=== PATIENT | male | born 1990 | race Caucasian/White ===

== ENCOUNTER 2023-03-06 09:29 | Emergency (ER) | payer OTHER, SELFPAY ==
[2023-03-06 09:30] VITALS: BP 148/92; PULSE 115; RESP 16; TEMP 36.5; O2SAT 98; BMI 27.8
--- NOTE | 2023-03-06 10:02 | CT_ITS ---
STUDY: CT ABDOMEN AND PELVIS WITH CONTRAST - URINARY TRACT REASON FOR EXAM: Male, 32 years old. LLQ Pain and bleeding RADIATION DOSAGE (If Supplied By Facility): CTDIvol = ( 13.13 ) mGy, DLP = ( 685.59 ) mGycm TECHNIQUE: IV 100mL Isovue-300 was administered. Transaxial images were obtained from the dome of the diaphragm to the symphysis pubis subsequent to intravenous contrast demonstration. Multiplanar coronal and sagittal images were reformatted. Individualized Dose Optimization Techniques Were Used For This CT. COMPARISON: No relevant prior comparison study available FINDINGS: The visualized lung bases are unremarkable. The visualized portions of the heart are within normal limits. There is a too small to characterize low-attenuation focus within the right hepatic lobe which may reflect a hemangioma or cyst. There is hepatomegaly. Normal gallbladder and extrahepatic biliary system. There is mild splenomegaly. Normal pancreas. Normal bilateral adrenal glands. Normal visualized stomach. Normal small intestine. There is circumferential wall thickening of the colon and rectum. There are a few diverticula arising from the sigmoid colon. The appendix is visualized and appears normal. Normal abdominal aorta. No retroperitoneal adenopathy. Normal right kidney. Normal left kidney. Normal urinary bladder. Normal abdominal wall. Normal osseous structures. CT/Abdomen/Pelvis W IV Cont ONLY IMPRESSION: Acute proctocolitis. Hepatosplenomegaly. Electronically Signed: Ashley Gutierrez MD at 10:56 EST ,
--- NOTE | 2023-03-06 10:03 | ED.VIS.GI ---
HPI HPI - GI History of Present Illness Chief Complaint: GI Bleed Informant: patient Narrative Narrative: Patient presents with some diarrhea and blood in his stool. Patient states he started with diarrhea on Saturday. On Saturday he had a little bit of pinkish tinge. But it seemed to clear up. He continued with some waxing and waning diarrhea. 2 weeks prior to this he had had URI symptoms. He had been taking some Motrin but at the absolute most he had taken 8 [id number] Motrin tablets in a day. He does not take it regularly. He has never had epigastric pain. He started having some red in the stool again today. It was initially pink and then he had 1 that was more bright red. He did show me a picture and it clearly looks like some bright red blood on tissue. He also states he has started developing left lower quadrant pain. He has no history of Crohn's ulcerative colitis in him or his family. He has never had a colonoscopy. He has never had abdominal surgery. He has never had known diverticulitis. He has not been having fevers or chills. He has not been having nausea or vomiting. He has no other areas of bleeding or bruising. PFSH PFSH Home Medications dicyclomine 20 mg tablet 20 mg PO TID PRN abdominal cramping #14 tabs 03/06/23 [Rx Last Taken Unknown] Allergy/AdvReac Type Severity Reaction Status Date / Time No Known Allergies Allergy Verified 03/06/23 09:32 Surgical History History of tonsillectomy Social History Smoking Status: Never smoker ROS ROS ED ROS Narrative A complete review of systems was performed and is negative except as documented in the history of present illness. Some specific details below. Constitutional: No recent fevers or chills. He did have the URI symptoms as in history of present illness. EYE: No visual complaints or pain. ENT: No difficulty swallowing. No swelling. No pain. No GERD. CV: No chest pain or palpitations. Respiratory: No dyspnea. No hemoptysis. No difficulty taking breaths. GI: Please see history of present illness. : No frequency dysuria or hematuria. Musculoskeletal: No recent trauma. No pains. No abnormal bruising Skin: No rash. Nondiaphoretic. No petechiae Neuro: No weakness or numbness. Endocrine: No polyuria or polydipsia. EXAM Physical Exam Narrative Exam Narrative: CONSTITUTIONAL: Patient is nontoxic in appearance. The patient looks comfortable. HEENT: No notable trauma. Mucous membranes minimal dry. No intraoral petechiae. EYES: No conjunctival injection. No petechiae CARDIOVASCULAR: Regular rate at this time although he was tachycardic in triage. Regular rhythm. No notable murmur. No JVD. RESPIRATORY: No respiratory distress. Breathing is unlabored. No wheezes. No rhonchi. No rales. No pain with a deep breath. GASTROINTESTINAL: Not distended. Bowel sounds are normal. He does have a small amount of tenderness at the left lower quadrant. But no rebound or guarding. No mass or fullness. Rectal exam looks normal. An Ifob test was sent off but I suspect this will be positive based on his history and his picture. GENITOURINARY: No tenderness over the bladder. No CVA tenderness. MUSCULOSKELETAL: Atraumatic. No peripheral edema. No cord. No tenderness along the deep venous system. No asymmetry. NEUROLOGICAL: Patient is alert and appropriate. No focal deficit noted. SKIN: No noted rashes. No diaphoresis. PSYCHIATRIC: Patient is calm. Mood is appropriate. Const Vital Signs: 03/06/23 09:30 Temperature 97.7 F L Temperature Source Temporal Pulse Rate 115 H Respiratory Rate 16 Blood Pressure 148/92 H Blood Pressure Mean 110 Pulse Ox 98 Oxygen Delivery Method Room Air MDM MDM MDM Narrative Medical decision making narrative: CBC shows no marked abnormalities. White count hemoglobin and plate normal. Electrolytes show minimally low potassium this can self-correct with diet. Patient's liver function test are overall normal. My depend interpretation of his CT of the abdomen does show some thickening of the colon. This is read as acute proctocolitis. I did discuss the case with Dr. Amin. He looked at the patient's images. He feels that with his recent viral type syndrome and this finding and presentation this is most likely viral. He recommended no antibiotics. We will use Bentyl. I discussed with the patient if he is having worsening pain, consistent fevers, notable blood loss lightheadedness or any other concerns to return. But this should most likely resolve. Lab Data Attestation: I reviewed the patient's lab results. Labs: Laboratory Results - last 24 hr 03/06/23 03/06/23 09:45 10:03 WBC 8.4 RBC 5.32 Hgb 15.2 Hct 45.7 MCV 85.9 MCH 28.6 MCHC 33.3 RDW Std Deviation 38.4 RDW Coeff of Timmy 12.3 Plt Count 277 MPV 9.4 Immature Gran % (Auto) 0.500 Neut % (Auto) 68.6 Lymph % (Auto) 15.2 L Fisher % (Auto) 14.1 H Eos % (Auto) 1.1 Baso % (Auto) 0.5 Absolute Neuts (auto) 5.8 Absolute Lymphs (auto) 1.27 Nucleated RBC % 0 Sodium 138 Potassium 3.3 L Chloride 106 Carbon Dioxide 28.0 Anion Gap 4 L BUN 11 Creatinine 1.19 Estim Creat Clear Calc 93.72 Est GFR (MDRD) Af Amer 92 Est GFR (MDRD) Non-Af 76 BUN/Creatinine Ratio 9.2 L Glucose 107 H Calcium 9.6 Total Bilirubin 0.50 AST 15 ALT 36 Alkaline Phosphatase 76 Total Protein 7.8 Albumin 3.5 Globulin 4.3 H Albumin/Globulin Ratio 0.8 L Radiography Diagnostic Testing: Clinical Impression(s) from Imaging Studies Abdomen/Pelvis CT 03/06/23 10:02 IMPRESSION: Acute proctocolitis. Hepatosplenomegaly. Electronically Signed: Ashley Gutierrez MD at 10:56 EST Reading Location ID and State: [facility] / [place] Tel , Service support , Management Discussion w/another healthcare provider: [employer] Discharge Plan Triage Chief Complaint: GI Bleed ED Provider: Saleem Huitron Dx/Rx/DC Orders Clinical Impression: Bright red blood per rectum, Proctocolitis Instructions: ED Understanding Colitis Prescriptions: New dicyclomine 20 mg tablet 20 mg PO TID PRN (Reason: abdominal cramping) Qty: 14 0RF Primary Care Provider: Care Physician,No Primary Referrals: Friend,Barney, DO [Med Staff - Active Staff] - 1 Week if not improving NOT,DEFINED [Non-Staff] - Disposition Disposition: Home, Self Care
[2023-03-06] MEDS: 0.9% Normal Saline (1000mL) 1,000 ML 1000 ML IV (10:10)
[2023-03-06 10:13] LABS: Absolute Lymphocyte Count 1.27 X10^3/uL (0.83-4.51); Absolute Neutrophil Count 5.8 X10^3/uL (2.0-7.7); Basophil# 0.04 X10^3/uL; Basophil% 0.5 % (0-1); Eosinophil# 0.09 X10^3/uL; Eosinophils% 1.1 % (0-5); Hematocrit 45.7 % (40-54); Hemoglobin 15.2 g/dL (13.0-16.5); Lymphocyte # 1.27 X10^3/ul (0.83-4.51); Lymphocyte % 15.2 % (19-41); Mean Corp Hgb Conc 33.3 g/dL (32-36); Mean Corpuscular Hgb 28.6 pg (27.0-32.0); Mean Corpuscular Volume 85.9 fL (80-94); Mean Platelet Vol. 9.4 fl (6.2-12.0); Monocyte# 1.18 X10^3/uL; Monocyte% 14.1 % (0-10); NRBC Flagged by Analyzer 0 % (0-5); Neutrophil # 5.76 X10^3/uL (2.7-7.7); Neutrophil % 68.6 % (47-70); Platelet Count 277 K/mm3 (150-450); RBC Distribution Width CV 12.3 % (11.6-14.6); RBC Distribution Width SD 38.4 fl (35.1-43.9); Red Blood Count 5.32 M/mm3 (4.6-6.2); White Blood Count 8.4 K/mm3 (4.4-11.0)
[2023-03-06 10:32] LABS: ALB/GLOB Ratio 0.8 RATIO (0.9-2.4); AST(SGOT) 15 U/L (15-37); Alanine Aminotransfer ALT/SGPT 36 U/L (16-61); Albumin, Serum 3.5 g/dL (3.2-5.0); Alkaline Phosphatase 76 U/L (45-117); Anion Gap 4 (5-15); BUN 11 mg/dL (7-18); BUN/Creat Ratio 9.2 RATIO (10-20); Calcium,Total 9.6 mg/dL (8.5-10.1); Chloride 106 mmol/L (98-107); Creatinine, Serum 1.19 mg/dL (0.70-1.30); EST Glomerular Filtration Rate 76 mL/min (>60); Est Glom Filt Rate - Afr Amer 92 mL/min (>60); Estimated Creatinine Clearance 93.72 ml/min; Globulin 4.3 g/dL (2.2-4.2); Glucose 107 mg/dL (74-106); Potassium 3.3 mmol/L (3.5-5.1); Protein, Total 7.8 g/dL (6.4-8.2); Sodium Level 138 mmol/L (136-145)
[2023-03-06 14:13] VITALS: PULSE 66; RESP 14
== END 2023-03-06 14:14 | disposition home or self-care (01) ==
PROVIDERS: Emergency Provider Emergency Medicine; Visit Provider Emergency Medicine
DX: K62.89 Other specified diseases of anus and rectum (principal); K92.2 Gastrointestinal hemorrhage, unspecified; R19.7 Diarrhea, unspecified
CPT/HCPCS: 74177; 80053; 82274; 85025; 96360; 96361; 99283; J7030; Q9967; A4216